=== PATIENT | male | born 1960 | race Caucasian/White ===

== ENCOUNTER 2019-11-01 02:08 | Inpatient (IN) | payer BC, SELFPAY ==
[~2019-11-01] VITALS: Ht 172.7 cm; Wt 88.5 kg
[2019-11-01 02:11] VITALS: BP_SYST 97
--- NOTE | 2019-11-01 02:11 | NUR ---
Placed in room 7 . Placed on cardiac rn, blood pressure machine and pulse oximeter. To gown for exam. Side rails up. Report given to EMILY BENNETT/SABINO BENNETT.
--- NOTE | 2019-11-01 02:21 | NUR ---
ER at bedside examining patient.
[2019-11-01] MEDS ORDERED: NACL 0.9% 1,000 ML IV ONE (02:26)
[2019-11-01] MEDS ORDERED: PANTOPRAZOLE SODIUM 40 MG/VIAL (PROTONIX) IVP ONE (02:30)
[2019-11-01] MEDS ORDERED: ONDANSETRON HCL 4 MG/2 ML VIAL IVP ONE (02:30)
--- NOTE | 2019-11-01 02:30 | NUR ---
59yr male BIBA c/o one episode of coffee brown emesis x 1 hour ago. Pt states s/s started with nausea and got instant relief after vomiting. Denies abdominal pain, sob, chest pain. Pt recently got tested for COVID on September 22 and , both negative. Allergy to pencillin. HX of abdominal aneurysm and HTN.
--- NOTE | 2019-11-01 02:43 | NUR ---
EKG performed at by DONALD Miller. Physician given copy of EKG for review.
--- NOTE | 2019-11-01 02:50 | NUR ---
# 22 gauge angiocath placed to RAC. Use of asceptic technique. Opsite placed over site. Blood return noted. Blood for lab drawn from site. Flushed with 10 cc of normal saline. No evidence of infiltration noted. Patient tolerated well.
[2019-11-01 03:13] LABS: BASOPHILS # (AUTO) 0.1 K/uL (0.0-0.2); BASOPHILS % (AUTO) 1.1 % (0.0-2.0); EOSINOPHILS # (AUTO) 0.1 K/uL (0.0-0.4); EOSINOPHILS % (AUTO) 2.5 % (0.0-4.0); HEMATOCRIT 33.8 % (36-54); HEMOGLOBIN 11.4 g/dL (14.0-18.0); LYMPHOCYTES % (AUTO) 18.7 % (20.5-51.5); MEAN CORPUSCULAR HEMOGLOBIN 31 pg (27-31); MEAN CORPUSCULAR HGB CONC 34 % (32-36); MEAN CORPUSCULAR VOLUME 93 fL (79.0-98.0); MONOCYTES # (AUTO) 0.5 K/uL (0.0-1.0); MONOCYTES % (AUTO) 9.2 % (1.7-9.3); NEUTROPHILS # (AUTO) 3.6 K/uL (1.8-7.7); NEUTROPHILS % (AUTO) 68.5 % (40.0-70.0); PLATELET COUNT (AUTO) 108 K/uL (130-430); RED BLOOD CELL COUNT(AUTO) 3.65 MIL/uL (4.2-6.2); RED CELL DISTRIBUTION WIDTH 13.5 % (9.0-15.0); WHITE BLOOD COUNT (AUTO) 5.2 K/uL (4.8-10.8)
[2019-11-01 03:22] LABS: CALCIUM 8.3 mg/dL (8.4-11.0); POTASSIUM 4.5 mmol/L (3.5-5.1)
[2019-11-01 03:28] LABS: INR 1.1 (0.80-1.20); PROTHROMBIN TIME 10.9 SECS (9.5-12.5)
[2019-11-01 03:29] LABS: TOTAL BILIRUBIN 0.6 mg/dL (0.0-1.0)
[2019-11-01] MEDS ORDERED: ACETAMINOPHEN 325 MG TABLET PO ONE (04:00)
--- NOTE | 2019-11-01 04:20 | NUR ---
Pt is currently resting, symmetric chest rise and fall. No complaints at this time.
--- NOTE | 2019-11-01 04:30 | NUR ---
REASSESSMENT for headache 0/10.
--- NOTE | 2019-11-01 05:40 | NUR ---
MRSA swab collected and sent to lab.
[2019-11-01] MEDS: NACL 0.9% 1,000 ML IV SCH ×3 (05:47→22:17)
[2019-11-01] MEDS ORDERED: NACL 0.9% 1,000 ML IV STA (05:47)
--- NOTE | 2019-11-01 05:53 | NUR ---
Orders have been placed, [facility] called for a bed. Charge nurse stated tele hold until morning shift has arrived.
--- NOTE | 2019-11-01 06:25 | NUR ---
Patient's code status is MODIFIED RESUSCIATIVE MEASURES paperwork completed and placed in chart.
--- NOTE | 2019-11-01 08:00 | NUR ---
Pt resting in [facility] at this time, asleep
[2019-11-01] MEDS ORDERED: LORazepam 2 MG/ML VIAL IVP PRN (10:30)
[2019-11-01] MEDS ORDERED: BANANA BAG 1 EA, FOLIC ACID 1 MG, THIAMINE HCL 100 MG, MAGNESIUM SULFATE 1 GM, MVI 10 M... IV SCH ×5 (10:30)
[2019-11-01 10:37] LABS: HEMATOCRIT 31.6 % (36-54); HEMOGLOBIN 10.7 g/dL (14.0-18.0)
[2019-11-01] MEDS: PANTOPRAZOLE SODIUM 40 MG in NS 50 ML IV SCH ×4 (10:45→22:28)
--- NOTE | 2019-11-01 11:26 | NUR ---
CONSULTATION PAGED REASON FOR CONSULTATION:GI BLEED WAS CONSULT CALLED?Y PERSON WHO WAS NOTIFIED:JASSON CONSULTING PHYSICIAN:ELISA CARMONA ([employer] TEXTBOOK ASSOCIATE) SPRAY DRIER OPERATOR HELPER SPECIALTY:GI SPRAY DRIER OPERATOR HELPER PHONE NUMBER:[phone] ORDERING PHYSICIAN:ANA LUISA RUIZ
--- NOTE | 2019-11-01 11:32 | NUR ---
Note aline in ED - 11/01/19 at 1133 by SDEDDW Patient will be admitted to care of [facility]. Admitted to [] unit. Will go to room []. Belongings list completed. Complete and up to date summary report printed. SBAR report to be given at bedside with opportunity for questions.
--- NOTE | 2019-11-01 11:33 | NUR ---
Patient will be admitted to care of [facility]. Admitted to Tele unit. Will go to room 132C. Belongings list completed. Complete and up to date summary report printed. SBAR report to be given at bedside with opportunity for questions.
--- NOTE | 2019-11-01 11:40 | NUR ---
ADMISSION: The patient, JAMARI SARMIENTO, 59 y/o, M admitted by ANA LUISA FIGUEROA MD, was given written information regarding hospital policies, unit procedures and contact persons. Valuables were checked and noted.
--- NOTE | 2019-11-01 11:45 | NUR ---
Opening Notes Received patient via aditi quinones. Received report from DONALD Perkins by bedside. Patient is ambulatory, steady gait. No resp distress noted at this time. Breathing is even and unlabored. Patient c/o 6/10 back pain, requesting pain medication. Patient was oriented to room. Successfully performed proper use of the call light. Patient remains NPO until 1800 for ordered US. Patient denies any N/V/D. Safety and fall precautions in place. Call light within reach. Bed in lowest position, locked. Will continue to monitor.
[2019-11-01 12:08] VITALS: BP_SYST 135
--- NOTE | 2019-11-01 13:18 | NUR ---
Notes Patient is laying in bed resting. No resp distress noted. Breathing is even and unlabored. IV site on right FA, 20 gauge, flushing well. NS @ 100 ml/hr started, infusing well. All needs met at this time. Safety and fall precautions in place. Call light within reach. Bed in lowest position, locked. Will continue to monitor.
[2019-11-01] MEDS ORDERED: MORPHINE 2 MG/ML INJ. SYRINGE IVP PRN (14:00)
--- NOTE | 2019-11-01 15:00 | NUR ---
Notes Patient is resting in bed, eyes closed. No resp distress noted at this time. Breathing is even and unlabored at this time. Patient denies any pain at this time. Patient denies any nausea at this time. Patient remains NPO for scheduled EGD tomorrow morning. All needs met at this time. Safety and fall precautions in place. Call light within reach. Bed in lowest position, alarm on, locked. Will continue to monitor.
[2019-11-01] MEDS: THIAMINE HCL 100 MG, MAGNESIUM SULFATE 1 GM in NS 100 ML IV SCH (16:15)
[2019-11-01] MEDS: FOLIC ACID 1 MG, MVI 10 ML in NACL 0.9% 1,000 ML IV SCH (16:16)
[2019-11-01 16:30] VITALS: BP_SYST 140
[2019-11-01 16:37] LABS: HEMOGLOBIN 9.9 g/dL (14.0-18.0)
--- NOTE | 2019-11-01 17:45 | NUR ---
Morphine 1 mg IVP Patient c/o 11/24 chronic back pain. Patient was given Morphine 1 mg IVP, tolerated well. Will continue to monitor.
[2019-11-01] MEDS: MORPHINE 2 MG/ML INJ. SYRINGE IVP PRN (17:48)
--- NOTE | 2019-11-01 18:00 | NUR ---
Pain Reassessment Patient reported relief of back pain. Patient is resting in bed at this time. Will continue to monitor.
--- NOTE | 2019-11-01 18:37 | NUR ---
Closing Notes Patient is awake, alert and oriented x4. Patient is ambulatory, steady gait. No resp distress noted at this time. Breathing is even and unlabored. Patient denies any pain at this time. IV site on right AC, 22 gauge intact. All needs met at this time. Safety and fall precautions in place. Call light within reach. Bed in lowest position, locked. Will continue to monitor until report is given by bedside with oncoming nurse.
[2019-11-01 20:00] VITALS: BP_SYST 151
--- NOTE | 2019-11-01 20:00 | NUR ---
A/A/OX4.DENIES ANY DISCOMFORT @ THIS TIME. DENIES SOB.AFEBRILE.BP 151/80MM HG.INSTRUCTED TO USE CALL LIGHT NEEDED;WITHIN REACH.BANANA BAG INFUSING WELL ON HIS RAC. NOTED ABRASION ON HIS LEFT FACE STATED HE FELL DOWN @ HOME TODAY.
[2019-11-01 22:01] LABS: HEMATOCRIT 27.8 % (36-54); HEMOGLOBIN 9.4 g/dL (14.0-18.0)
--- NOTE | 2019-11-01 22:17 | NUR ---
BANANA BAG COMPLETED.IVF NS @ 100ML/HR,PROTONIX DRIP @ 8MG /HR @ 10ML/HR INFUSING WELL RESPECTIVELY ON HIS RAC.
--- NOTE | 2019-11-02 | NUR ---
AFEBRILE.V/S STABLE.KEPT NPO.
[2019-11-02] MEDS: PANTOPRAZOLE SODIUM 40 MG in NS 50 ML IV SCH ×2 (00:01→05:10)
[2019-11-02 00:14] VITALS: BP_SYST 103
--- NOTE | 2019-11-02 02:00 | NUR ---
RESTING COMFORTABLY IN NO ACUTE DISTRESS.
[2019-11-02 03:53] LABS: HEMATOCRIT 26.2 % (36-54)
--- NOTE | 2019-11-02 04:00 | NUR ---
VOIDING FREELY IN THE BR.
[2019-11-02] MEDS: NACL 0.9% 1,000 ML IV SCH ×2 (05:14→21:11)
--- NOTE | 2019-11-02 06:31 | NUR ---
ENDORSED RESTING COMFORTABLY IN NO ACUTE DISTRESS.IVF INFUSING WELL. KEPT NPO. SAFETY MAINTAINED. NO EPISODE OF EMESIS OVER 12 HRS.
[2019-11-02] MEDS ORDERED: SIMETHICONE 40 MG/0.6 ML ML ONE (07:52)
[2019-11-02] MEDS ORDERED: BENZOCAINE 20% 0.5mL UD SPRAY MM ONE (07:52)
[2019-11-02] MEDS ORDERED: fentaNYL CITRATE/PF 100 MCG/2 ML AMP ONE (07:52)
[2019-11-02] MEDS ORDERED: MIDAZOLAM HCL 5 MG/5 ML VIAL ONE (07:53)
--- NOTE | 2019-11-02 07:55 | NUR ---
Opening Notes Patient is awake, alert and oriented x4. No resp distress noted. Breathing is even and unlabored. Patient denies any pain at this time. IV site on right AC, 22 gauge intact. NS @ 100 ml/hr infusing well. Patient denies any NVD. Patient is ambulatory, steady gait. Patient remains NPO for scheduled EGD today, scheduled at 0830. Safety and fall precautions in place. Call light within reach. Bed in lowest position, locked.
--- NOTE | 2019-11-02 07:57 | NUR ---
PAGED PAGED ANA LUISA RUIZ AT [phone] SPOKE WITH PAUL.
[2019-11-02 08:00] VITALS: BP_SYST 118
--- NOTE | 2019-11-02 08:17 | NUR ---
2ND PAGE OUT TO PAGED ANA LUISA RUIZ AT [phone] SPOKE WITH PAUL.
--- NOTE | 2019-11-02 08:40 | NUR ---
COVID [address] Echeverria called back and approved the order for COVID 19 swab x EGD. Noted and carried out.
--- NOTE | 2019-11-02 08:52 | NUR ---
Dr. Urena by bedside, preparing EGD Dr. Urena informed nurse that the COVID 19 SWAB was not necessary for EGD. Will ask Dr. Echeverria if COVID 19 swab still needs to be done. Will hold test for now. Will continue to monitor.
--- NOTE | 2019-11-02 09:00 | NUR ---
EGD being performed at bedside.
--- NOTE | 2019-11-02 09:03 | NUR ---
IV site not working IV site on right FA, 22 gauge is not working. Nurse restarted new peripheral IV on right hand, 22 gauge, flushing well. No redness or irritation noted at this time. Will continue to monitor.
[2019-11-02] MEDS ORDERED: PANTOPRAZOLE SODIUM 40 MG TAB PO ONE (09:45)
--- NOTE | 2019-11-02 09:45 | NUR ---
NO COVID SWAB Spoke with Dr. Echeverria and stated the COVID SWAB was not necessary. Swab not performed.
[2019-11-02 09:47] LABS: HEMOGLOBIN 9.1 g/dL (14.0-18.0)
--- NOTE | 2019-11-02 10:00 | NUR ---
Notes Patient is resting in bed, eyes closed. No resp distress noted. Breathing is even and unlabored. Patient denies any pain at this time. Patient was notified of diet change: full liquid diet. Provided patient with water, coffee and jello. All needs met at this time. Safety and fall precautions in place. Call light within reach. Bed in lowest position, locked. Will continue to monitor.
--- NOTE | 2019-11-02 11:30 | NUR ---
Fever Patient was noted with a fever of 100.1 F. Provided cooling measures for the patient: removed blankets, ice packs underneath armpits. Will re-take temperature in a bit. Will continue to monitor.
--- NOTE | 2019-11-02 11:39 | NUR ---
Resistance Welding Machine Operator:met with pt. to follow up. ACCOUNTS RECEIVABLE CLERK met with pt. bedside. He was sitting up reading. He looked relaxed and was friendly. He stated he is doing ok. He stated he does have a history of drinking, 6 pack of beer nightly for the past 40 years. He stated he has stopped drinking 4 months ago. ACCOUNTS RECEIVABLE CLERK stated he is getting treatment with a banana bag. Pt. stated he was fine and has not been drinking. ACCOUNTS RECEIVABLE CLERK asked if he had ever received AA, Alcohol treatment, been in a substance abuse program, detox... Pt. stated he just stopped and it was easy. He found it more challenging to stop smoking. ACCOUNTS RECEIVABLE CLERK asked if it was ok to leave some substance abuse resources, he agreed. He stated he did not have any needs or questions. ACCOUNTS RECEIVABLE CLERK will remain available as needed.
--- NOTE | 2019-11-02 12:00 | NUR ---
Notes Patient is relaxing by bedside. No resp distress noted. Breathing is even and unlabored. Patients temperature was noted at 99.9 F. Nurse asked patient if he would like some Tylenol for the fever. Patient agreed. Obtained orders from Dr. Echeverria to administer Tylenol. Will continue to monitor.
[2019-11-02 12:38] VITALS: BP_SYST 102
--- NOTE | 2019-11-02 12:40 | NUR ---
Pain Patient c/o 11/24 back pain. Per patient, "the pain is chronic." Patient was given Morphine 1 mg IVP, tolerated well. Patient is resting in bed at this time. Will continue to monitor.
--- NOTE | 2019-11-02 12:45 | NUR ---
Tylenol 650 mg Obtained new orders from Dr. Echeverria to administer Tylenol 650 mg x fever. Administered to patient, tolerated well. Will continue to monitor.
[2019-11-02] MEDS ORDERED: ACETAMINOPHEN 325 MG TABLET PO PRN (13:00)
[2019-11-02] MEDS: MORPHINE 2 MG/ML INJ. SYRINGE IVP PRN ×2 (13:04→21:11)
--- NOTE | 2019-11-02 14:52 | NUR ---
Temp & Pain Reassessment Temperature was rechecked and noted at 96.8 F. Patient denies any pain at this time. Will continue to monitor.
[2019-11-02] MEDS: THIAMINE HCL 100 MG, MAGNESIUM SULFATE 1 GM in NS 100 ML IV SCH (15:58)
[2019-11-02] MEDS: FOLIC ACID 1 MG, MVI 10 ML in NACL 0.9% 1,000 ML IV SCH (15:58)
[2019-11-02 16:09] LABS: HEMOGLOBIN 8.9 g/dL (14.0-18.0)
[2019-11-02 16:19] LABS: HEMATOCRIT 26.5 % (36-54)
--- NOTE | 2019-11-02 16:27 | NUR ---
Notes Patient is laying in bed resting at this time. No resp distress noted. Breathing is even and unlabored. Patient denies any pain at this time. No fever noted. Patient c/o reddened bump on left antecubital area. Per patient, "when the nurse took off the tape earlier, it stung." Will endorse to next nurse to notify Dr. Echeverria to look at it. All needs met at this time. Safety and fall precautions in place. Call light within reach. Bed in lowest position, locked. Will continue to monitor.
[2019-11-02 16:55] VITALS: BP_SYST 106
--- NOTE | 2019-11-02 18:29 | NUR ---
Closing Notes Patient is awake, alert and oriented x4, talking on the phone with his . No resp distress noted. Breathing is even and unlabored. Patient denies any pain at this time. IV site on right hand, 22 gauge intact and IV site on right FA, 22 gauge intact. Banana bag currently running @ 250 cc/hr, infusing well. Patient is ambulatory, steady gait. Patient remains on full liquid diet. Patient denies any nausea, vomiting and diarrhea. All needs met at this time. Safety and fall precautions in place. Call light within reach. Bed in lowest position, locked. Will continue to monitor until bedside report is given to oncoming nurse.
[2019-11-02 19:50] VITALS: BP_SYST 146
--- NOTE | 2019-11-02 19:50 | NUR ---
INITIAL NOTES PATIENT IS STABLE AND LAYING IN BED. NO S/S OF RESPIRATORY DISTRESS NOTED. CALL LIGHT IN REACH. PATIENT SUCCESSFULLY DEMONSTRATES USAGE OF CALL LIGHT. BED IS LOCKED AND AT THE LOWEST POSITION. PATIENT EDUCATED ON BED ALARM, PATIENT REFUSED. WILL CONTINUE TO MONITOR. PLAN OF CARE IS DISCUSSED WITH THE PATIENT. FALL, SAFETY, ASPIRATION, AND RESPIRATORY PRECAUTIONS WILL BE IN PLACE THROUGHOUT THE SHIFT.
[2019-11-02] MEDS: PANTOPRAZOLE SODIUM 40 MG TAB PO SCH (20:24)
[2019-11-02 21:47] LABS: HEMATOCRIT 25.8 % (36-54); HEMOGLOBIN 8.7 g/dL (14.0-18.0)
--- NOTE | 2019-11-02 21:50 | NUR ---
PATIENT IS STABLE AND LAYING IN BED. NO S/S OF RESPIRATORY DISTRESS NOTED. CALL LIGHT IN REACH.
--- NOTE | 2019-11-02 23:50 | NUR ---
PATIENT IS STABLE AND SLEEPING IN BED. NO S/S OF RESPIRATORY DISTRESS NOTED. CALL LIGHT IN REACH.
[2019-11-03 00:04] VITALS: BP_SYST 108; BP_SYST 97
--- NOTE | 2019-11-03 00:46 | NUR ---
PATIENT IS STABLE AND SLEEPING IN BED. NO S/S OF RESPIRATORY DISTRESS NOTED. CALL LIGHT IN REACH.
--- NOTE | 2019-11-03 02:50 | NUR ---
PATIENT IS STABLE AND SLEEPING IN BED. NO S/S OF RESPIRATORY DISTRESS NOTED. CALL LIGHT IN REACH.
[2019-11-03 03:25] LABS: HEMATOCRIT 25.4 % (36-54); HEMOGLOBIN 8.6 g/dL (14.0-18.0)
--- NOTE | 2019-11-03 04:11 | NUR ---
PATIENT IS STABLE AND SLEEPING IN BED. NO S/S OF RESPIRATORY DISTRESS NOTED. CALL LIGHT IN REACH.
--- NOTE | 2019-11-03 06:14 | NUR ---
CLOSING NOTES PATIENT IS STABLE AND LAYING IN BED. NO S/S OF RESPIRATORY DISTRESS NOTED. CALL LIGHT IN REACH. BED IS LOCKED AND AT THE LOWEST POSITION. FALL, SAFETY, ASPIRATION, AND RESPIRATORY PRECAUTIONS HAS BEEN IN PLACE THROUGHOUT THE SHIFT. WILL CONTINUE TO MONITOR UNTIL REPORT IS ENDORSED TO AM NURSE BY BEDSIDE.
[2019-11-03] MEDS: NACL 0.9% 1,000 ML IV SCH (06:23)
--- NOTE | 2019-11-03 07:45 | NUR ---
Opening Notes Patient is awake, alert and oriented x4. Patient is ambulatory, steady gait. No resp distress noted. Breathing is even and unlabored. Patient denies any pain at this time. Patient denies any NVD. IV site on right hand 22 gauge, intact. NS @ 100 ml/hr, infusing well. Informed patient that MD Urena upgraded patients diet to soft (low fiber). Patient aware and agreed. All needs met at this time. Safety and fall precautions in place. Call light within reach. Bed in lowest position, locked. Will continue to monitor.
[2019-11-03 08:00] VITALS: BP_SYST 128
[2019-11-03] MEDS: PANTOPRAZOLE SODIUM 40 MG TAB PO SCH (09:20)
[2019-11-03 09:38] LABS: HEMATOCRIT 26.5 % (36-54)
--- NOTE | 2019-11-03 10:30 | NUR ---
Notes Patient is awake, alert and oriented x4, resting in bed watching TV. No resp distress. Breathing is even and unlabored. Patient denies any pain at this time. Patient was given two cups of coffee and some juice. All needs met at this time. Safety and fall precautions in place. Call light within reach. Bed in lowest position, locked. Will continue to monitor.
[2019-11-03] MEDS ORDERED: PRO40 PO (11:20)
[2019-11-03 11:35] VITALS: BP_SYST 128
== END 2019-11-03 12:10 | disposition home or self-care (01) | DRG 381 ==
LOC: SED 02:08 → STU 05:47 → EEVIPCON 05:47 → STU 11:22
PROVIDERS: ADMIT Internal Medicine Hospice and Palliative Medicine; ATTEND Internal Medicine Hospice and Palliative Medicine
PROC: 0DB68ZX Excision of Stomach, Via Natural or Artificial Opening Endoscopic, Diagnostic (ICD-10-PCS; principal; 2019-11-02 08:30)
PROC: 06L38ZZ Occlusion of Esophageal Vein, Via Natural or Artificial Opening Endoscopic (ICD-10-PCS; 2019-11-02 08:30)
DX: K22.11 Ulcer of esophagus with bleeding (principal); I85.00 Esophageal varices without bleeding; D62 Acute posthemorrhagic anemia; K21.9 Gastro-esophageal reflux disease without esophagitis; I71.4 Abdominal aortic aneurysm, without rupture; K29.70 Gastritis, unspecified, without bleeding; I10 Essential (primary) hypertension; B19.20 Unspecified viral hepatitis C without hepatic coma; E78.5 Hyperlipidemia, unspecified; F17.210 Nicotine dependence, cigarettes, uncomplicated; K26.9 Duodenal ulcer, unspecified as acute or chronic, without hemorrhage or perforation; Z86.79 Personal history of other diseases of the circulatory system; Z88.0 Allergy status to penicillin; Z79.899 Other long term (current) drug therapy
CPT/HCPCS: 36415; 71045; 71250-TC; 76700-TC; 80053; 85018-TC; 85025; 85610-TC; 85730-TC; 87081; 88305; 88312; 88313; 93005; 96361; 96374; 96375; 99285; C9113; G0378; J2250; J2270; J2405; J3010; J3411; J3475; J3490; J7030

== ENCOUNTER 2023-07-11 21:51 | Inpatient (IN) | payer BC ==
[~2023-07-11] VITALS: Ht 172.7 cm; Wt 108.4 kg
[~2023-07-11 21:51] MED LIST: PRO40 PO
[2023-07-11] MEDS ORDERED: NS 500 ML IV SCH (22:00)
[2023-07-11 22:03] VITALS: BP_SYST 91; PULSE 59; RESP 16; TEMP 97.3; O2SAT 99
[2023-07-11 22:25] LABS: BASOPHILS # (AUTO) 0.1 K/uL (0.0-0.2); BASOPHILS % (AUTO) 0.8 % (0.0-2.0); EOSINOPHILS # (AUTO) 0.1 K/uL (0.0-0.4); EOSINOPHILS % (AUTO) 0.8 % (0.0-4.0); LYMPHOCYTES # (AUTO) 2.6 K/uL (1.0-5.5); LYMPHOCYTES % (AUTO) 18.4 % (20.5-51.5); MEAN CORPUSCULAR HEMOGLOBIN 20 pg (27-31); MEAN CORPUSCULAR HGB CONC 30 % (32-36); MEAN CORPUSCULAR VOLUME 67 fL (79.0-98.0); MONOCYTES # (AUTO) 1.3 K/uL (0.0-1.0); MONOCYTES % (AUTO) 9.7 % (1.7-9.3); NEUTROPHILS # (AUTO) 9.7 K/uL (1.8-7.7); PLATELET COUNT (AUTO) 204 K/uL (130-430); RED BLOOD CELL COUNT(AUTO) 2.69 MIL/uL (4.2-6.2); RED CELL DISTRIBUTION WIDTH 19.5 % (9.0-15.0); WHITE BLOOD COUNT (AUTO) 13.8 K/uL (4.8-10.8)
[2023-07-11 22:42] LABS: CREATININE 1.7 mg/dL (0.55-1.30); POTASSIUM 3.8 mmol/L (3.5-5.1)
[2023-07-11 22:43] LABS: HEMOGLOBIN 5.4 g/dL (14.0-18.0)
[2023-07-11 22:44] LABS: HEMATOCRIT 18.1 % (36-54)
[2023-07-11 22:46] LABS: INR 1.1 (0.80-1.20); PROTHROMBIN TIME 11.4 SECS (9.5-12.5)
[2023-07-11 22:47] LABS: ALBUMIN 2.7 g/dL (3.4-4.8); BILIRUBIN,DIRECT 0.1 mg/dL (0.0-0.3); TOTAL BILIRUBIN 0.4 mg/dL (0.0-1.0); TOTAL PROTEIN, SERUM 5.8 g/dL (6.4-8.3)
[2023-07-11] MEDS: FAMOTIDINE PF 20 MG/2 ML VIAL IVP ONE (22:58)
[2023-07-11] MEDS: OCTREOTIDE ACETATE 500 MCG in NS 99.5 ML IV ONE (23:00)
[2023-07-11] MEDS: NACL 0.9% 1,000 ML IV ONE (23:00)
[2023-07-11] MEDS ORDERED: PANTOPRAZOLE SODIUM 40 MG/VIAL (PROTONIX) ONE (23:04)
[2023-07-11 23:14] LABS: ANISOCYTOSIS 1+; HYPOCHROMASIA 2+; OVALOCYTES MODERATE; POLYCHROMASIA 2+; TEAR DROP CELLS FEW
[2023-07-11] MEDS: PANTOPRAZOLE SODIUM 40 MG/VIAL (PROTONIX) IVP ONE (23:21)
[2023-07-12] VITALS (15 sets, daily range): BP systolic 92–137; PULSE 50–61; RESP 11–23; TEMP 98–99.2; O2SAT 94–98
[2023-07-12] MEDS ORDERED: PANTOPRAZOLE SODIUM 40 MG/VIAL (PROTONIX) ONE (00:54)
[2023-07-12] MEDS: PANTOPRAZOLE SODIUM 40 MG in NS 50 ML IV ONE (01:03)
[2023-07-12] MEDS: OCTREOTIDE ACETATE 500 MCG in NS 99.5 ML IV NR (01:26)
[2023-07-12] MEDS: D5/0.45 NS 1,000 ML IV SCH (09:12)
[2023-07-12] MEDS ORDERED: LISI20TA30 PO (09:19)
[2023-07-12] MEDS ORDERED: POTA-197 PO (09:19)
[2023-07-12] MEDS ORDERED: PRO40 PO (09:19)
[2023-07-12] MEDS ORDERED: FURO-149 PO (09:19)
[2023-07-12] MEDS ORDERED: PROP10TA10 PO (09:19)
[2023-07-12] MEDS: PANTOPRAZOLE SODIUM 40 MG/VIAL (PROTONIX) IVP SCH (10:07)
[2023-07-12] MEDS: METOCLOPRAMIDE HCL 10 MG/2 ML VIAL IVP SCH (10:36)
[2023-07-12] MEDS: OCTREOTIDE ACETATE 1,250 MCG in NS 250 ML IV SCH (10:38)
[2023-07-12] MEDS: PANTOPRAZOLE SODIUM 40 MG/VIAL (PROTONIX) ONE (10:43)
[2023-07-12 10:57] LABS: BASOPHILS # (AUTO) 0.1 K/uL (0.0-0.2); BASOPHILS % (AUTO) 0.9 % (0.0-2.0); EOSINOPHILS # (AUTO) 0.1 K/uL (0.0-0.4); EOSINOPHILS % (AUTO) 1.2 % (0.0-4.0); HEMATOCRIT 25.9 % (36-54); HEMOGLOBIN 8.3 g/dL (14.0-18.0); LYMPHOCYTES # (AUTO) 1.4 K/uL (1.0-5.5); LYMPHOCYTES % (AUTO) 14.4 % (20.5-51.5); MEAN CORPUSCULAR HEMOGLOBIN 24 pg (27-31); MEAN CORPUSCULAR HGB CONC 32 % (32-36); MEAN CORPUSCULAR VOLUME 74 fL (79.0-98.0); MONOCYTES # (AUTO) 0.6 K/uL (0.0-1.0); MONOCYTES % (AUTO) 6.7 % (1.7-9.3); NEUTROPHILS # (AUTO) 7.4 K/uL (1.8-7.7); NEUTROPHILS % (AUTO) 76.8 % (40.0-70.0); PLATELET COUNT (AUTO) 128 K/uL (130-430); RED BLOOD CELL COUNT(AUTO) 3.49 MIL/uL (4.2-6.2); RED CELL DISTRIBUTION WIDTH 23.1 % (9.0-15.0); WHITE BLOOD COUNT (AUTO) 9.6 K/uL (4.8-10.8)
[2023-07-12] MEDS ORDERED: MORPHINE 4 MG INJ. 4 MG/ML VIAL IVP PRN (11:15)
[2023-07-12] MEDS ORDERED: ONDANSETRON HCL 4 MG/2 ML VIAL IVP PRN (11:15)
[2023-07-12] MEDS ORDERED: MORPHINE 2 MG/ML INJ. SYRINGE IVP PRN (11:15)
[2023-07-12] MEDS ORDERED: NALOXONE HCL 0.4 MG/ML AMP (NARCAN) IVP PRN (11:15)
[2023-07-12] MEDS ORDERED: LORazepam 2 MG/ML VIAL IVP PRN (11:15)
[2023-07-13] VITALS (13 sets, daily range): BP systolic 103–160; PULSE 44–60; RESP 15–18; TEMP 97.4–99.3; O2SAT 95–100
[2023-07-13 05:49] LABS: ALBUMIN 2.6 g/dL (3.4-4.8); CREATININE 1.41 mg/dL (0.55-1.30); POTASSIUM 4.3 mmol/L (3.5-5.1); TOTAL BILIRUBIN 0.6 mg/dL (0.0-1.0); TOTAL PROTEIN, SERUM 5.6 g/dL (6.4-8.3)
[2023-07-13 05:54] LABS: PROTHROMBIN TIME 10.7 SECS (9.5-12.5)
[2023-07-13 07:18] LABS: BASOPHILS # (AUTO) 0.1 K/uL (0.0-0.2); EOSINOPHILS # (AUTO) 0.1 K/uL (0.0-0.4); EOSINOPHILS % (AUTO) 2.1 % (0.0-4.0); HEMATOCRIT 23.3 % (36-54); HEMOGLOBIN 7.4 g/dL (14.0-18.0); LYMPHOCYTES # (AUTO) 1.2 K/uL (1.0-5.5); MEAN CORPUSCULAR HEMOGLOBIN 24 pg (27-31); MEAN CORPUSCULAR HGB CONC 32 % (32-36); MEAN CORPUSCULAR VOLUME 75 fL (79.0-98.0); MONOCYTES # (AUTO) 0.5 K/uL (0.0-1.0); MONOCYTES % (AUTO) 7.4 % (1.7-9.3); NEUTROPHILS # (AUTO) 4.4 K/uL (1.8-7.7); NEUTROPHILS % (AUTO) 70.5 % (40.0-70.0); PLATELET COUNT (AUTO) 123 K/uL (130-430); RED BLOOD CELL COUNT(AUTO) 3.13 MIL/uL (4.2-6.2); RED CELL DISTRIBUTION WIDTH 23.2 % (9.0-15.0); WHITE BLOOD COUNT (AUTO) 6.3 K/uL (4.8-10.8)
[2023-07-13] MEDS: SIMETHICONE 40 MG/0.6 ML ML ONE (07:25)
[2023-07-13] MEDS: MEPERIDINE 100 MG INJ. 100 MG/ML VIAL ONE (10:16)
[2023-07-13] MEDS: MIDAZOLAM HCL 5 MG/5 ML VIAL ONE (10:16)
[2023-07-13 10:53] LABS: NEUTROPHILS % (AUTO) 70.3 % (40.0-70.0)
[2023-07-13] MEDS: SUCRALFATE 1 GM/10 ML UDC GT ONE (12:12)
[2023-07-13 12:22] LABS: BASOPHILS # (AUTO) 0.1 K/uL (0.0-0.2); BASOPHILS % (AUTO) 1.2 % (0.0-2.0); EOSINOPHILS # (AUTO) 0.2 K/uL (0.0-0.4); EOSINOPHILS % (AUTO) 2.3 % (0.0-4.0); HEMATOCRIT 24.4 % (36-54); HEMOGLOBIN 7.7 g/dL (14.0-18.0); LYMPHOCYTES # (AUTO) 1.1 K/uL (1.0-5.5); LYMPHOCYTES % (AUTO) 15.6 % (20.5-51.5); MEAN CORPUSCULAR HEMOGLOBIN 24 pg (27-31); MEAN CORPUSCULAR HGB CONC 32 % (32-36); MEAN CORPUSCULAR VOLUME 76 fL (79.0-98.0); MONOCYTES # (AUTO) 0.6 K/uL (0.0-1.0); MONOCYTES % (AUTO) 8.6 % (1.7-9.3); NEUTROPHILS # (AUTO) 4.9 K/uL (1.8-7.7); NEUTROPHILS % (AUTO) 72.3 % (40.0-70.0); PLATELET COUNT (AUTO) 120 K/uL (130-430); RED BLOOD CELL COUNT(AUTO) 3.22 MIL/uL (4.2-6.2); WHITE BLOOD COUNT (AUTO) 6.8 K/uL (4.8-10.8)
[2023-07-13] MEDS: SUCRALFATE 1 GM/10 ML UDC GT SCH (13:00)
[2023-07-13] MEDS ORDERED: LISI10TA29 PO (16:01)
[2023-07-14 04:28] LABS: BASOPHILS # (AUTO) 0.1 K/uL (0.0-0.2); BASOPHILS % (AUTO) 0.9 % (0.0-2.0); EOSINOPHILS # (AUTO) 0.2 K/uL (0.0-0.4); EOSINOPHILS % (AUTO) 2.7 % (0.0-4.0); HEMATOCRIT 22.7 % (36-54); HEMOGLOBIN 7.3 g/dL (14.0-18.0); LYMPHOCYTES # (AUTO) 0.9 K/uL (1.0-5.5); LYMPHOCYTES % (AUTO) 14.7 % (20.5-51.5); MEAN CORPUSCULAR HEMOGLOBIN 24 pg (27-31); MEAN CORPUSCULAR HGB CONC 32 % (32-36); MEAN CORPUSCULAR VOLUME 75 fL (79.0-98.0); MONOCYTES # (AUTO) 0.5 K/uL (0.0-1.0); MONOCYTES % (AUTO) 7.8 % (1.7-9.3); NEUTROPHILS # (AUTO) 4.6 K/uL (1.8-7.7); NEUTROPHILS % (AUTO) 73.9 % (40.0-70.0); PLATELET COUNT (AUTO) 125 K/uL (130-430); RED BLOOD CELL COUNT(AUTO) 3.04 MIL/uL (4.2-6.2); RED CELL DISTRIBUTION WIDTH 23.7 % (9.0-15.0); WHITE BLOOD COUNT (AUTO) 6.3 K/uL (4.8-10.8)
[2023-07-14 04:39] LABS: CALCIUM 8.2 mg/dL (8.4-11.0); CREATININE 1.25 mg/dL (0.55-1.30); PHOSPHORUS 3.9 mg/dL (2.7-4.5)
[2023-07-14 08:12] VITALS: BP_SYST 155; PULSE 54; RESP 18; TEMP 98; O2SAT 97
[2023-07-14 10:58] VITALS: O2SAT 97
[2023-07-14 12:00] VITALS: BP_SYST 122; PULSE 61; RESP 18; TEMP 98.5; O2SAT 98
[2023-07-14] MEDS: SUCRALFATE 1 GM/10 ML UDC PO SCH (13:01)
[2023-07-14 17:00] VITALS: BP_SYST 148; PULSE 67; RESP 19; TEMP 97.8; O2SAT 97
[2023-07-14 20:00] VITALS: BP_SYST 132; PULSE 71; RESP 17; TEMP 99.4; O2SAT 97
[2023-07-14 23:42] VITALS: O2SAT 97
[2023-07-15 00:45] VITALS: BP_SYST 151; PULSE 71; RESP 17; TEMP 98.9; O2SAT 95
[2023-07-15 06:30] LABS: BASOPHILS # (AUTO) 0.1 K/uL (0.0-0.2); BASOPHILS % (AUTO) 0.8 % (0.0-2.0); EOSINOPHILS # (AUTO) 0.1 K/uL (0.0-0.4); EOSINOPHILS % (AUTO) 1.7 % (0.0-4.0); HEMATOCRIT 24.9 % (36-54); HEMOGLOBIN 7.9 g/dL (14.0-18.0); LYMPHOCYTES # (AUTO) 0.4 K/uL (1.0-5.5); LYMPHOCYTES % (AUTO) 5.9 % (20.5-51.5); MEAN CORPUSCULAR HEMOGLOBIN 24 pg (27-31); MEAN CORPUSCULAR HGB CONC 32 % (32-36); MEAN CORPUSCULAR VOLUME 75 fL (79.0-98.0); MONOCYTES # (AUTO) 0.3 K/uL (0.0-1.0); MONOCYTES % (AUTO) 4.5 % (1.7-9.3); NEUTROPHILS # (AUTO) 6.4 K/uL (1.8-7.7); NEUTROPHILS % (AUTO) 87.1 % (40.0-70.0); PLATELET COUNT (AUTO) 140 K/uL (130-430); RED BLOOD CELL COUNT(AUTO) 3.35 MIL/uL (4.2-6.2); RED CELL DISTRIBUTION WIDTH 24.3 % (9.0-15.0); WHITE BLOOD COUNT (AUTO) 7.3 K/uL (4.8-10.8)
[2023-07-15 06:50] LABS: ALBUMIN 2.8 g/dL (3.4-4.8); CALCIUM 8.5 mg/dL (8.4-11.0); CREATININE 1.23 mg/dL (0.55-1.30); TOTAL BILIRUBIN 1.1 mg/dL (0.0-1.0); TOTAL PROTEIN, SERUM 6.3 g/dL (6.4-8.3)
[2023-07-15 08:00] VITALS: O2SAT 98
[2023-07-15 08:03] VITALS: BP_SYST 130; PULSE 65; RESP 16; TEMP 100.1; O2SAT 94
[2023-07-15] MEDS ORDERED: PRO40 PO (09:46)
[2023-07-15] MEDS ORDERED: SUCR1ORA4 PO (09:46)
[2023-07-15 14:54] VITALS: BP_SYST 132; PULSE 66; RESP 18; TEMP 99; O2SAT 97
[2023-07-15 14:55] VITALS: BP_SYST 132; PULSE 66; RESP 18; TEMP 99; O2SAT 96
== END 2023-07-15 15:50 | disposition home or self-care (01) | DRG 377 ==
LOC: SED 21:51 → SIC 07-12 07:21 → EEVIPCON 07-12 07:21 → SIC 07-12 08:00 → STU 07-13 08:05 → SMU 07-14 14:56
PROVIDERS: ADMIT Preventive Medicine Preventive Medicine/Occupational Environmental Medicine; ATTEND Preventive Medicine Preventive Medicine/Occupational Environmental Medicine
PROC: 30233N1 Transfusion of Nonautologous Red Blood Cells into Peripheral Vein, Percutaneous Approach (ICD-10-PCS; 2023-07-12)
PROC: 06L38CZ Occlusion of Esophageal Vein with Extraluminal Device, Via Natural or Artificial Opening Endoscopic (ICD-10-PCS; principal; 2023-07-13 09:45)
PROC: 0DB78ZX Excision of Stomach, Pylorus, Via Natural or Artificial Opening Endoscopic, Diagnostic (ICD-10-PCS; 2023-07-13 09:45)
DX: K29.71 Gastritis, unspecified, with bleeding (principal); E43 Unspecified severe protein-calorie malnutrition; N17.9 Acute kidney failure, unspecified; D62 Acute posthemorrhagic anemia; I85.10 Secondary esophageal varices without bleeding; E66.9 Obesity, unspecified; E83.51 Hypocalcemia; R73.9 Hyperglycemia, unspecified; D69.6 Thrombocytopenia, unspecified; E86.1 Hypovolemia; K31.819 Angiodysplasia of stomach and duodenum without bleeding; D72.829 Elevated white blood cell count, unspecified; K70.30 Alcoholic cirrhosis of liver without ascites; I10 Essential (primary) hypertension; F17.200 Nicotine dependence, unspecified, uncomplicated; Z80.9 Family history of malignant neoplasm, unspecified; Z86.79 Personal history of other diseases of the circulatory system; Z68.36 Body mass index [BMI] 36.0-36.9, adult; Z88.0 Allergy status to penicillin
CPT/HCPCS: 36415; 70450-TC; 71045; 76770; 80048; 80053; 80076; 82105; 82140; 83735; 83880; 84100; 84484; 85025; 85610; 85730; 86886; 86900; 86901; 86920; 87081; 88305; 88312; 88313; 93005; 93306; 93880; 97110-GP; 97116-GP; 97530-GP; 99291; C9113; G0378; J2175; J2250; J2765; J3490; J7050; P9021